=== PATIENT | female | born 1965 | race Caucasian/White ===

== ENCOUNTER 2019-11-18 12:26 | Day surgery (SDC) | payer OTHER ==
[~2019-11-18] VITALS: Ht 162.6 cm; Wt 80.9 kg
[~2019-11-18 12:26] MED LIST: AMAN100 PO; FARXIGA5 MG PO; Inderal60 MG PO; JANUMET 50-5001 EACH PO; Janumet 50-5001 EACH PO; Klonopin0.5 MG PO; Norco 7.5-3251 EACH PO; PRAM.5 PO; PROP60 PO; RYTARY PO; SAVELLA50 MG PO; TRAZ100 PO; TRAZ50 PO
--- NOTE | 2019-11-18 13:25 | NUR ---
11/18/19 1325 SOLE ALFONSO ONE ATTEMPT BY COLLEEN IN RH VALVE ONE ATTEMPT BY RN IN FA VALVE ONE ATTEMPT BY RN IN LFA VALVE ONE SUCCESFUL IN LAC BY RN PT TOW
== END 2019-11-18 15:13 | disposition home or self-care (01) ==
LOC: ORSCSDS 12:26
PROVIDERS: Surgery
PROC: 0DJD8ZZ Inspection of Lower Intestinal Tract, Via Natural or Artificial Opening Endoscopic (ICD-10-PCS; principal; 2019-11-18 14:15)
DX: Z12.11 Encounter for screening for malignant neoplasm of colon (principal); I10 Essential (primary) hypertension; G20 Parkinson's disease; E11.9 Type 2 diabetes mellitus without complications; G47.30 Sleep apnea, unspecified; E66.9 Obesity, unspecified; Z68.34 Body mass index [BMI] 34.0-34.9, adult; Z87.891 Personal history of nicotine dependence; Z79.899 Other long term (current) drug therapy
CPT/HCPCS: 82947; J2704; J7120